=== PATIENT | female | born 1990 | race African-American/Black ===

== ENCOUNTER 2021-12-24 14:08 | Outpatient (CLI) | payer OTHER, SELFPAY ==
--- NOTE | ~2021-12-24 | US_ITS ---
EXAMINATION: US abdomen complete EXAM DATE: 12/24/2021 15:09 INDICATION: Low abdominal pain. TECHNIQUE: Multiple grayscale and Doppler images of the complete abdomen were obtained (by a technolo gist who performed the scan) and subsequently reviewed. There is no prior study for comparison. FINDINGS: The abdominal aorta is normal in caliber. Visualized portion IVC is patent. The pancreatic head a nd body are normal in appearance. The pancreatic tail is not visualized. Mildly echogenic liver parenchyma, hepatic steatosis. There are no focal liver lesions identified. There is no evidence of intrahepatic biliary duct dilation. Portal venous flow was seen in the hepa topedal, normal direction and has normal Doppler waveform. Common bile duct measures 5 mm, which is normal. The gallbladder fossa is unremarkable. Right kidney: There is normal contour and echogenicity. It measures 11.3 x 5.1 x 5.4 centimeters. There are no focal renal lesions identified. There is no hydronephrosis. Left kidney: There is normal contour and echogenicity. It measures 11.2 x 5.4 x 4.8 centimeters. T here are no focal renal lesions identified. There is no hydronephrosis. The spleen measures 9.4 centimeters and is morphologically normal. IMPRESSION: Hepatic steatosis. Reviewed, dictated and finalized at location A. STANT PRODUCT MANAGER IMPRESSION: Hepatic steatosis.
--- NOTE | ~2021-12-24 | US_ITS ---
EXAMINATION: US pelvic complete DATE: 12/24/2021 16:10 INDICATION: Lower abdominal pain. TECHNIQUE: Multiple transabdominal and endovaginal sonographic images of the pelvis were obtained. COMPARISON: None. FINDINGS: The uterus measures 13.6 x 5.0 x 6.6 cm. The endometrial complex measures 8-9 mm in thickness. The r ight ovary measures 4.7 x 2.4 x 1.8 cm. The left ovary measures 4.4 x 2.7 x 3.5 cm. 3.4 x 2.7 x 2.6 s imilar anechoic left ovarian cyst. There is normal vascular flow in the ovaries. There is no free flu id in the pelvis. Indeterminate 1.7 x 1.3 x 1.3 cm hypoechoic mass positioned superficial to the righ t adnexa possibly within the anterior pelvic wall. IMPRESSION: 1. 1.7 cm hypoechoic mass likely within the pelvic wall superficial to the right adnexa. The provided history of intermittent swelling correlating with the menstrual cycle and multiple prior se ctions raises suspicion for an endometrioma. Recommend further imaging with either CT or MRI for more definitive localization and characterization after which would consider biopsy for pathologic diagno sis. 2. Otherwise unremarkable pelvic ultrasound with 3.4 cm left ovarian cyst. Reviewed, dictated and finalized at location A. NET STRINGER IMPRESSION: 1. 1.7 cm hypoechoic mass likely within the pelvic wall superficial to the righ t adnexa. The provided history of intermittent swelling correlating with the me nstrual cycle and multiple prior sections raises suspicion for an endo metrioma. Recommend further imaging with either CT or MRI for more definitive l ocalization and characterization after which would consider biopsy for patholog ic diagnosis. 2. Otherwise unremarkable pelvic ultrasound with 3.4 cm left ovarian cyst.
== END 2021-12-24 14:09 | disposition home or self-care (01) ==
PROVIDERS: Visit Provider Advanced Practice Midwife
DX: R10.30 Lower abdominal pain, unspecified (principal); R19.03 Right lower quadrant abdominal swelling, mass and lump; K76.0 Fatty (change of) liver, not elsewhere classified
CPT/HCPCS: 76700; 76856

== ENCOUNTER 2022-01-12 08:05 | Outpatient (CLI) | payer OTHER, SELFPAY ==
--- NOTE | ~2022-01-12 | CT_ITS ---
EXAMINATION: CT abdomen pelvis w con DATE: 01/12/2022 08:30 INDICATION: Pelvic mass. TECHNIQUE: Computed tomography (CT) of the abdomen and pelvis was performed with 100 mL Omnipaque 350 intravenous contrast. Automated exposure control and iterative reconstruction technique were employe d. The dose-length product was 1628.95 mGy-cm. COMPARISON: None. FINDINGS: The visualized portions of the lung bases are clear without pneumonia or pleural effusion. The heart size is normal. No pericardial effusion. There is a small sliding hiatal hernia. The liver, spleen, pancreas, adrenal glands, and kidneys are normal. There are changes of cholecystectomy. Ther e are no dilated loops of bowel. The appendix is normal. There are no pathologically enlarged lymph n odes. There is no free intraperitoneal fluid. The uterus and ovaries are normal. There is mild thorac olumbar spondylosis. IMPRESSION: 1. No abnormal pelvic mass identified. 2. Small sliding hiatal hernia. Reviewed, dictated and finalized at location A.
== END 2022-01-12 08:06 | disposition home or self-care (01) ==
LOC: ANHIMG 08:09
PROVIDERS: Visit Provider Advanced Practice Midwife
DX: R19.00 Intra-abdominal and pelvic swelling, mass and lump, unspecified site (principal); K44.9 Diaphragmatic hernia without obstruction or gangrene; M47.815 Spondylosis without myelopathy or radiculopathy, thoracolumbar region
CPT/HCPCS: 74177; Q9967

== ENCOUNTER 2022-06-30 00:30 | Day surgery (SDC) | payer OTHER, SELFPAY ==
[2022-06-28 18:30] VITALS: BMI 57.4
--- NOTE | 2022-06-28 19:03 | PC.NURSE ---
Report to the Outpatient Waiting Room, entrance under the green pavilion located off [facility], at 0700 on 06-30-22. OR Time: 0900. Time changes happen often and if your time is changed the preop area will call you the afternoon before. - You and your visitor will be asked to self-screen and do not enter if you have any COVID symptoms. - Only one visitor and NO children visitors are allowed at this time. - The patient visitor is requested to leave or wait in car when not with patient due to restrictions. - A mask is required within the hospital. Patients may have clear liquids (water, carbonated beverages, clear teas, apple juice) until 3 hours prior to surgery with a maximum of 20 ounces. 0600 - No food from midnight until time of surgery - Infants may have breast milk until 4 hours before surgery, formula 6 hours prior to surgery. - Children will be allowed to drink immediately following surgery. If applicable, please bring a bottle or sippy cup to assist with drinking. Juice, water, soda, and popsicles are readily available. For infants on formula, please bring formula the day of surgery. Pacifiers are allowed. Take the following medications with a SIP of water the morning of surgery: None Medications to discontinue per physician: Vitamins and supplements Date to take last dose: 06-28-22 Please no make-up, nail malian, hairspray, perfume, deodorant, or body powder the day of surgery. No jewelry (including any body piercings) or valuables the day of surgery, leave them at home. Please take a shower or bath the night before, or the morning of, surgery with an antibacterial soap. Wear comfortable, loose fitting clothing. Children are encouraged to wear pajamas. - Jewelry must be removed prior to entering the operating room. Rings and piercings that are not removed may be cut off. - The hospital will not accept responsibility for valuables. - Please leave all valuables, including medications, at home the day of surgery. If you are going home after surgery, a licensed pile driver operator helper must drive you home. - NO public transportation without another adult. - We recommend that an adult stay with you for 24 hours following discharge. - We also recommend that you do not drive, make important decision, drink alcoholic beverages, or take any drugs that were not prescribed by your health care provider for at least 24 hours after your discharge time. For Pediatric surgeries, we recommend two adults accompany the child home (only one inside the building at this time). Follow any additional instructions given to you from your surgeon. If you or anyone in your household have experienced Covid symptoms in the past week, please notify your surgeon or the nurse liaison at the phone number below for possible testing. Telephone instructions given to Miguel Hargrove and asked if any additional questions and then verbalized understanding. Patient advised to call surgeon office or pre surgery nurse liaison [phone] if any additional questions.
[2022-06-30] VITALS (14 sets, daily range): BP systolic 114–150; BP diastolic 72–90; PULSE 56–81; RESP 16–25; TEMP 36.1–36.4; O2SAT 95–100; BMI 57.1
--- NOTE | 2022-06-30 08:01 | P.PNAN_ITS ---
Anes - Initial Pre Proc Eval Procedure: Operation Date: 06/30/22 09:00 Proposed Procedures p Diagnostic Laparoscopy, - Selam Gómez MD s Excision of Abdominal Wall Tumor - Selam Gómez MD Date/Time: 06/30/22 08:01 Surgeon: Selam Gómez MD Pre Op Diagnosis: endometriosis, scar of skin and pelvis Patient Data Age: 32 Gender: F Height: 1.57 m Weight: 141.7 kg Last Vital Signs Temp 36.1 C L 06/30/22 07:13 Pulse 56 L 06/30/22 07:13 Resp 16 06/30/22 07:13 BP 150/90 H 06/30/22 07:13 Pulse Ox 98 06/30/22 07:13 O2 Del Method Room Air 06/30/22 07:13 Allergies Allergy/AdvReac Type Severity Reaction Status Date / Time codeine AdvReac Mild Drowsy Verified 06/30/22 07:32 hydrocodone AdvReac Mild Drowsy Verified 06/30/22 07:32 oxycodone AdvReac Mild Drowsy Verified 06/30/22 07:32 Home Medications Medication Instructions Recorded Confirmed Type cholecalciferol (vitamin D3) 125 125 mcg PO DAILY 06/28/22 06/30/22 History mcg (5,000 unit) tablet (Vitamin D3) ferrous sulfate 325 mg (65 mg 325 mg PO DAILY 06/28/22 06/28/22 History iron) tablet multivitamin with minerals-folic 1 tablet PO DAILY 06/28/22 06/30/22 History acid 0.4 mg tablet Patient hx anesthesia problems: none Family hx anesthesia problems: none Results Review: All pre-operative results and documents have been reviewed as part of the pre- operative evaluation. [facility] Past Medical History Medical History (Updated 06/30/22 @ 08:01 by Mikel Quinn MD) Morbid obesity Surgical History Surgical History (Updated 06/30/22 @ 08:05 by Mikel Quinn MD) H/O laparoscopy History of cholecystectomy History of tubal ligation Social History Social History Smoking status: Never smoker Second hand tobacco smoke exposure: No Alcohol intake: never Substance use: never Substance use type: does not use Living arrangements: with family Spiritual care concerns: No Anes - Eval Final PreProcedure Day of Procedure 06/30/22 08:01 Patient weight: morbidly obese Heart: regular rate and rhythm Lungs: clear to auscultation Airway: Mallampati scale class II Neurological: alert and oriented Last oral intake: >/= 8 hours ASA classification: III Emergent: no Anesthetic plan: proceed Anesthesia type and monitoring: general GIVS and standard monitoring Results Review: All pre-operative results and documents have been reviewed as part of the pre- operative evaluation. Informed Consent: The patient's anesthetic plan and its attendant risks and benefits were discussed with the patient/family/POA. Questions were solicited and answers provided to the satisfaction of the patient/family/POA.
[2022-06-30] MEDS: ACETAMINOPHEN 500 MG TABLET 1000 MG PO (08:02)
--- NOTE | 2022-06-30 08:12 | WPDHPUPDATE1 ---
History and Physical Update Update Date/Time: 06/30/22 08:12 History and Physical has been reviewed, including an updated exam of the patient. There are NO changes in the patient's condition. Risks, benefits, and alternatives have been discussed and questions answered. Patient agrees to proceed with procedure.
--- NOTE | 2022-06-30 08:13 | PM.IMHP ---
H&P: HPI History of Present Illness Date/Time: 06/30/22 08:13 Chief Complaint: Pelvic pain and abdominal pain Narrative: This patient is a 32-year-old female with pelvic pain and subcutaneous abdominal wall mass. We have agreed to perform resection of abdominal wall mass and diagnostic laparoscopy. She understands that there is risk to the procedure. I have explained them to her in detail. She understands there is risk of injury that could result in hospitalization, more surgery, and severe illness. She understands risk of hemorrhage and infection. Review of Systems Review of Systems: All systems reviewed & are unremarkable except as noted in HPI and below Constitutional: Constitutional: Denies chills, Denies fatigue, Denies fever(s) and Denies weakness Eyes: Eyes: Denies blurry vision, Denies change in vision, Denies loss of peripheral vision, Denies loss of vision, Denies other visual disturbances and Denies eye pain ENT: Denies vertigo, Denies dizziness, Denies hearing loss, Denies mouth pain, Denies nasal obstruction, Denies neck mass and Denies neck pain Cardiovascular: Cardiovascular: Denies chest pain, Denies diaphoresis, Denies syncope, Denies leg edema and Denies dyspnea Respiratory: Respiratory: Denies chest congestion, Denies cough, Denies hemoptysis, Denies dyspnea and Denies wheezing Gastrointestinal: Gastrointestinal: Denies abdominal pain, Denies constipation, Denies diarrhea, Denies nausea and Denies vomiting Genitourinary: Genitourinary: Denies hematuria, Denies change in libido, Denies nocturia, Denies genital lesions, Denies flank pain and Denies urinary urgency Musculoskeletal: Musculoskeletal: Denies abnormal gait, Denies back pain, Denies myalgias, Denies arthralgias, Denies joint swelling, Denies muscle weakness and Denies neck pain Integumentary/Breasts: Skin/Breast: Denies swelling, Denies breast pain, Denies breast mass, Denies dry skin, Denies nipple discharge, Denies unusual bruising and Denies jaundice Neurologic: Denies Neuro-related abnormal movements, Denies Abnormal speech present, Denies abnormal gait, Denies behavioral changes, Denies confusion, Denies vertigo, Denies dizziness, Denies syncope, Denies loss of vision, Denies memory loss, Denies convulsions and Denies weakness Psychiatric: Psychiatric: Denies abnormal sleep pattern, Denies behavioral changes, Denies change in libido, Denies confusion, Denies depression, Denies anhedonia and Denies memory loss Endocrine: Endocrine: Reports no additional endocrine complaints, Denies change in libido and Denies fatigue Hematologic/Lymphatic: Hematologic/Lymphatic: Reports no additional hematologic/lymphatic complaints Allergic/Immunologic: Allergic/Immunologic: Reports no additional allergic/immunologic complaints and Denies wheezing PMFSH Past Medical History Medical History (Updated 06/30/22 @ 08:15 by Selam Gómez MD) Morbid obesity Surgical History Surgical History (Updated 06/30/22 @ 08:05 by Mikel Quinn MD) H/O laparoscopy History of cholecystectomy History of tubal ligation Social History Social History Smoking status: Never smoker Second hand tobacco smoke exposure: No Alcohol intake: never Substance use: never Substance use type: does not use Living arrangements: with family Spiritual care concerns: No Meds Home Medications and Allergies Home Medications Medication Instructions Recorded Confirmed Type cholecalciferol (vitamin D3) 125 125 mcg PO DAILY 06/28/22 06/30/22 History mcg (5,000 unit) tablet (Vitamin D3) ferrous sulfate 325 mg (65 mg 325 mg PO DAILY 06/28/22 06/28/22 History iron) tablet multivitamin with minerals-folic 1 tablet PO DAILY 06/28/22 06/30/22 History acid 0.4 mg tablet Allergies Allergy/AdvReac Type Severity Reaction Status Date / Time codeine AdvReac Mild Drowsy Verified 06/30/22 07:32 hydrocodon
[2022-06-30] MEDS: LACTATED RINGERS 1,000 ML 30 ML IV CONT ×2 (08:15→10:50)
[2022-06-30] MEDS: KETOROLAC 15 MG/ML VIAL (*BKC) IV PUSH (08:22)
[2022-06-30 08:46] LABS: Hematocrit 40.5 % (37.0-47.0); Hemoglobin 12.3 g/dL (12.0-15.0)
[2022-06-30] MEDS: ceFAZolin SODIUM 1 GM VIAL (09:09)
--- NOTE | 2022-06-30 10:40 | W.PM.PROC2 ---
Procedure Note - Detailed Date of Procedure 06/30/22 Pre-op Diagnosis Pelvic pain, subcutaneous mass Post-op Diagnosis Same (Pelvic adhesions-extensive) Procedure Performed Diagnostic laparoscopy, adhesiolysis-1 hour, resection of abdominal wall mass Surgeon Selam Gómez MD Anesthesia General Indications Pelvic pain, subcutaneous abdominal wall mass Findings Subcutaneous abdominal wall mass about 4 cm involving the fascia on the right side margin of the incision, dense adhesions between the uterus in the anterior pelvis/abdominal wall. Description of Procedure The patient was taken to the operating room. She was prepped and draped in the dorsal lithotomy position after induction general anesthesia. A 5 mm incision was made with a scalpel on the abdominal skin in the left upper quadrant of the abdomen. A 5 mm trocar was inserted into the intra-abdominal cavity under direct visualization the scope. In the same fashion a 5 mm left lower quadrant trocar was inserted and a 5 mm infraumbilical trocar was inserted. Adhesiolysis was performed between the anterior abdominal wall/pelvis with the uterus. There was dense extensive adhesions a Mace catheter was placed in the bladder to determine the location of the bladder. Using sharp and blunt dissection adhesiolysis was performed took an hour of time to perform this part of the procedure. Interceed was placed over the uterus at the end of the case to prevent further adhesion formation. The pelvis was irrigated. The pneumoperitoneum was reduced. The trocars were removed. Skin was closed with subcuticular 4 micro. The patient's incisions were covered with Dermabond. She was taken recovery room in stable condition. Sponge lap and needle counts were correct x2. Resection of subcutaneous abdominal wall mass was performed. Incision skin was made at the right margin of the skin incision. It was about 7 cm in length. Using sharp and blunt dissection the mass was dissected out of the subcutaneous fat in it partially involved the fascia. Some of the fascia had to be removed cautery was used to make the dissected area hemostatic. The fascia was then closed with an 0 Vicryl in a running fashion. Subcutaneous tissue was closed with 3-0 Vicryl in interrupted fashion. The skin was closed with subcuticular absorbable miri. Skin was covered with glue. Patient tolerated procedure well. She has taken recovery room stable condition. Sponge lap needle counts were correct x2. Estimated Blood Loss 50 Complications No immediate complications Condition Stable Disposition Same day
[2022-06-30] MEDS: HYDROmorphone HCL INJ (*CRX) 1 MG/ML SYR 0.25 MG IV PUSH ×4 (11:24→12:35)
--- NOTE | 2022-06-30 11:46 | SUR.PHASEI ---
Simple mask removed at 1144.
--- NOTE | 2022-06-30 12:07 | SUR.PHASEI ---
Patient wants to stay overnight for pain control. RN called Dr. Gómez for admission orders.
--- NOTE | 2022-06-30 13:00 | PC.NURSE ---
Patient transferred to post room # via ( ). Support person present. Oriented to unit, room, information board, rooming in, admission packet and security measures. Patient verbalizes understanding.
--- NOTE | 2022-06-30 13:00 | PC.NURSE ---
Patient transferred to post room # via ( [id number] ). Support person present. Oriented to unit, room, information board, rooming in, admission packet and security measures. Patient verbalizes understanding.
[2022-06-30] MEDS: DEXTROSE 5%/0.45% SOD CHL 1,000 ML 125 ML IV CONT (13:14)
[2022-06-30] MEDS: IBUPROFEN 600 MG TABLET PO ×2 (13:17→21:42)
[2022-06-30] MEDS: ONDANSETRON INJ 4 MG/2 ML VIAL IV PUSH (17:37)
[2022-06-30] MEDS: HYDROcodone/acetaminophen (*CRX) 5-325 MG TABLET 1 TAB PO ×2 (17:38→21:42)
[2022-07-01 03:30] VITALS: BP 117/54; PULSE 78; RESP 16; TEMP 36.3
[2022-07-01 07:35] VITALS: BP 111/69; PULSE 82; RESP 16; TEMP 36.9; O2SAT 99
--- NOTE | 2022-07-01 07:54 | PM.PNGS ---
Subjective Subjective Date/Time Seen: 07/01/22 07:54 s/p resection of abdominal wall mass, pt denies complaints Review of Systems Review of Systems: All systems reviewed & are unremarkable except as noted in HPI and below Exam Const: General: cooperative, healthy appearing and comfortable Resp: Effort & Inspection: normal respiratory effort and able to speak in complete sentences GI: Other: Incision CDI Objective Data Vital Signs Vital Signs: Vital Signs - 24 hr 06/30/22 10:50 06/30/22 11:05 06/30/22 11:20 Temperature 36.2 C L Pulse Rate 70 57 L 62 Respiratory Rate 21 H 24 H 25 H Blood Pressure 128/72 125/72 128/77 Pulse Oximetry 100 100 100 Oxygen Delivery Simple Face Mask Simple Face Mask Simple Face Mask Oxygen Flow Rate 6 6 6 06/30/22 11:35 06/30/22 11:50 06/30/22 12:05 Temperature Pulse Rate 62 66 64 Respiratory Rate 23 H 24 H 24 H Blood Pressure 119/74 115/77 126/76 Pulse Oximetry 100 100 95 Oxygen Delivery Simple Face Mask Room Air Room Air Oxygen Flow Rate 6 06/30/22 12:20 06/30/22 12:35 06/30/22 12:48 Temperature Pulse Rate 81 67 68 Respiratory Rate 20 24 H 22 H Blood Pressure 118/77 136/78 114/75 Pulse Oximetry 98 97 97 Oxygen Delivery Room Air Room Air Room Air Oxygen Flow Rate 06/30/22 13:20 06/30/22 16:00 06/30/22 16:00 Temperature 36.2 C L 36.4 C Pulse Rate 70 79 Respiratory Rate 20 20 Blood Pressure 130/77 135/82 Pulse Oximetry 100 100 Oxygen Delivery Room Air Oxygen Flow Rate 06/30/22 19:00 06/30/22 19:00 06/30/22 23:20 Temperature 36.1 C L 36.2 C L Pulse Rate 67 67 65 Respiratory Rate 16 16 18 Blood Pressure 134/81 137/78 Pulse Oximetry 99 99 Oxygen Delivery Room Air Oxygen Flow Rate 07/01/22 03:30 Temperature 36.3 C L Pulse Rate 78 Respiratory Rate 16 Blood Pressure 117/54 L Pulse Oximetry Oxygen Delivery Oxygen Flow Rate Intake/Output Intake/Output: Intake & Output 06/28/22 06/29/22 06/30/22 07/01/22 23:59 23:59 23:59 23:59 Intake Total 1400 Output Total 1595 600 Balance -195 -600 Meds/Results Medications: Active Medications Generic Name Dose Route Start Last Admin Trade Name Freq PRN Reason Stop Dose Admin Hydrocodone Bitart/Acetaminophen 1 tab 06/30/22 12:50 06/30/22 21:42 Hydrocodone/Acetaminophen (*Crx) 5-325 Mg Tablet PO 1 tab Q3H PRN Administration Pain Rated 5 or Less Hydrocodone Bitart/Acetaminophen 1 tab 06/30/22 12:50 Hydrocodone/Acetaminophen (*Crx) 10-325 Mg Tablet PO Q3H PRN Pain Rated 6 or Greater Ibuprofen 600 mg 06/30/22 12:50 06/30/22 21:42 Ibuprofen 600 Mg Tablet PO 600 mg Q6H PRN Administration Cramping Ketorolac Tromethamine 30 mg 06/30/22 12:50 Ketorolac 30 Mg/Ml Vial (*Bkc) IV PUSH 07/05/22 12:49 Q6H PRN Pain Rated 4-6 Naloxone HCl 0.1 mg 06/30/22 12:50 Naloxone Hcl 0.4 Mg/Ml Vial IV PUSH Q2M PRN Respiratory rate less than 10 Ondansetron HCl 4 mg 06/30/22 12:50 06/30/22 17:37 Ondansetron Inj 4 Mg/2 Ml Vial IV PUSH 4 mg Q6H PRN Administration Nausea And Vomiting Labs Labs: Laboratory Results - last 24 hr 06/30/22 07:40 Hgb 12.3 Hct 40.5
--- NOTE | 2022-07-01 07:56 | P.DS_ITS ---
DS: Admitting Diagnosis Discharge Date 07/01/22 Admitting Diagnosis abdominal wall mass DS: Summary Hospital Course Hospital Course: resection of abdominal wall mass Time Spent with Patient Time attestation: Total time spent providing and/or coordinating discharge services: DS: Data Data Completed and Pending Pending studies at discharge: Pending at discharge 06/30/22 10:08 Surgical [PTH] Routine Labs on day of discharge: Labs from last 24 hours 06/30/22 07:40 Hgb 12.3 Hct 40.5 Discharge Plan Discharge Patient Disposition: Home, Self-Care Discharge Instructions: Some Complications to Watch for: ? Excessive incisional or vaginal drainage (more than one pad an hour). Additional Instructions: ? Expect some vaginal spotting for 2-4 days. ? Nothing vaginally (i.e. douching, intercourse, tampons) until follow up visit. Skin Adhesive Care Skin adhesive is medical glue used to close wounds. It is a substitute for miri and stitches. Skin adhesive wound closures take less time and do not r equire anesthesia. You have less pain and a lower risk of infection than with miri or stitches. Skin adhesive will fall off after the wound is healed. Discharge instructions: Keep wound clean and dry. You can shower 24 hours after adhesive is applied but do not soak in bath or hot tub until wound is healed or provider approves. Do not pick or scrub your wound or the adhesive. This can make your wound reopen. ?Do not apply ointments to your wound. These include antibiotic or other ointments that would contain petroleum jelly. These products will remove skin adhesive and reopen the wound. Contact your provider if you have a fever, your wound is red and warm to touch or have questions about your condition or care. Seek care immediately if your wound is draining fluid or open. Stand Alone Forms: General Discharge Instructions Follow-up/Referrals: Selam Gómez MD [Physician] - Discharge Medications: New hydrocodone-acetaminophen 5-325 mg tablet 1 tablet PO Q4H PRN (Reason: pain) Qty: 14 0RF Continued ferrous sulfate 325 mg (65 mg iron) Tablet 325 mg PO DAILY Rx Instructions: Patient hasn't taken for 3 weeks prior to today multivit with min-folic acid 0.4 mg Tablet 1 tablet PO DAILY cholecalciferol (vitamin D3) [Vitamin D3] 125 mcg (5,000 unit) Tablet 125 mcg PO DAILY
--- NOTE | 2022-07-01 08:49 | WPDANESPN ---
Anes - Prog Note Post-Op Date/Time: 07/01/22 08:49 Cardiovascular status: normal Respiratory status: normal Airway patency: baseline Mental status: baseline Post-Op hydration status: normal Vital Signs: Last Vital Signs Temp 36.3 C L 07/01/22 03:30 Pulse 78 07/01/22 03:30 Resp 16 07/01/22 03:30 BP 117/54 L 07/01/22 03:30 Pulse Ox 99 06/30/22 19:00 O2 Del Method Room Air 06/30/22 19:00 O2 Flow Rate 6 06/30/22 11:35 Pain Score (VAS): 3 I/O: Intake & Output 06/30/22 07/01/22 07/01/22 23:59 07:59 15:59 Intake Total 600 Output Total 1300 600 Balance -700 -600 Laboratory Tests 06/30/22 07:40 06/30/22 07:40 Hgb 12.3 Hct 40.5 Post-procedural complaints: none Patient Feedback: Patient satisfied with anesthetic care.
[2022-07-01] MEDS: IBUPROFEN 600 MG TABLET PO (09:14)
--- NOTE | 2022-07-05 07:48 | PM.OBTRLD ---
OB - Triage/Final Diagnosis Visit Information Date of evaluation: 06/30/22 Reason for evaluation: other (pelvic mass) Comments/Additional reasons for admission: I have assessed the risk for this patient, Miguel Rivera Beena, and determined that she would benefit from observation care. Evaluation Laboratory results: Laboratory Tests 06/30/22 07:40 Hgb 12.3 Hct 40.5
== END 2022-07-01 10:33 | disposition home or self-care (01) ==
LOC: ANHSURGERY 11:05 → ANHOB2 12:54
PROVIDERS: Anesthesiology; Visit Provider Obstetrics & Gynecology
PROC: (CPT 49320; principal; 2022-06-30 09:00)
PROC: (CPT 22903; 2022-06-30 09:00)
DX: R10.2 Pelvic and perineal pain (principal); N80.6 Endometriosis in cutaneous scar; N73.6 Female pelvic peritoneal adhesions (postinfective); E66.01 Morbid (severe) obesity due to excess calories; Z68.43 Body mass index [BMI] 50.0-59.9, adult
CPT/HCPCS: 22903; 58660; 36415; 85014; 85018; 88304; 99199; A9270; J0690; J1100; J1170; J1885; J2250; J2405; J2704; J3010; J7030; J7120